=== PATIENT | male | born 1975 | race Two or more races ===

== ENCOUNTER 2022-10-31 15:49 | Observation (INO) ==
[2022-10-31 18:21] LABS: ABS Eosinophils 0.2 10^3/uL (0.0-0.5); ABS Lymphocytes 2.1 10^3/uL (1.0-4.8); ABS Monocytes 0.5 10^3/uL (0.0-1.1); ABS Neutrophils 2.4 10^3/uL (1.5-7.6); ABS Nucleated RBC 0.02 10^3/ul; Eosinophil % 3.3 %; Hemoglobin 16.9 g/dL (13.2-16.3); Lymphocyte % 40.5 %; Mean Corpuscular Hemoglobin 28.5 pg (27-33); Mean Corpuscular Hgb Conc 34.5 g/dL (31-36); Mean Corpuscular Volume 82.6 fL (80-97); Mean Platelet Volume 8.7 fL (7.5-11.2); Nucleated Red Blood Cells % 0.4 /100 WBC (0.0-0.4); Platelet Count 168 10^3/uL (150-450); Red Blood Count 5.93 10^6/uL (4.06-5.63); Red Cell Distribution Width 14.4 % (12-17); White Blood Count 5.3 10^3/uL (3.6-10.2)
[2022-10-31 18:32] LABS: Urine Appearance Cloudy; Urine Bilirubin Negative (Negative); Urine Blood Negative (Negative); Urine Color Yellow; Urine Glucose Negative (Negative); Urine Ketones Negative (Negative); Urine Nitrite Negative (Negative); Urine Protein Negative (Negative); Urine Specific Gravity 1.019 (1.002-1.030); Urine Urobilinogen Negative (Negative)
[2022-10-31 18:45] LABS: ALT 61 U/L (7-52); AST 33 U/L (13-39); Albumin 4.8 g/dL (3.2-5.2); Albumin/Globulin Ratio 2.1 (1-3); Alkaline Phosphatase 50 U/L (35-149); Anion Gap 6 mmol/L (2-16); Blood Urea Nitrogen 10 mg/dL (6-24); C Reactive Protein < 1.00 mg/L (<8.01); CO2 Carbon Dioxide 28 mmol/L (22-32); Calcium 9.1 mg/dL (8.6-10.3); Chloride 107 mmol/L (101-111); Creatinine, Serum 0.79 mg/dL (0.67-1.17); Globulin 2.3 g/dL (2-4); Glucose 87 mg/dL (70-100); Lipase 30 U/L (11.0-82.0); Potassium 3.6 mmol/L (3.5-5.0); Sodium 141 mmol/L (135-145); Total Protein 7.1 g/dL (6.4-8.9); eGFR CKD-EPI 109.6 (>60)
[2022-10-31] MEDS ORDERED: Iohexol 300 (CONTRAST) 10 ML SDV IV ONE (20:16)
[2022-11-01] MEDS ORDERED: Lactated Ringers 1000 ml BAG 1,000 ML IV ONE (00:17)
[2022-11-01] MEDS ORDERED: Ondansetron 4 mg VIAL 2 MG/ML 2 ml VIAL IV PRN (00:39)
[2022-11-01] MEDS ORDERED: HYDROmorphone 1 MG/1 ML SYRINGE IV SLOW PU PRN (00:39)
[2022-11-01] MEDS ORDERED: oxyCODONE/Acetamin 5/325 mg TAB PO PRN (00:39)
[2022-11-01] MEDS ORDERED: Piperacillin/Tazobac 3.375 BAG 3.375 GM/100 ML BAG IV ONE (00:40)
[2022-11-01] MEDS ORDERED: Lactated Ringers 1000 ml BAG 1,000 ML IV SCH (01:00)
[2022-11-01] MEDS ORDERED: Sucralfate 1 gm SUSP 1 GM/10 ML UDC PO SCH (01:00)
[2022-11-01] MEDS ORDERED: Enoxaparin 40 MG/0.4 ML SYR SUBCUT SCH (02:00)
[2022-11-01 10:05] VITALS: BP 142/83
== END 2022-11-01 10:03 | disposition home or self-care (01) ==
LOC: EDHOLD 15:49 → ED 15:49 → SSU 11-01 08:29 → EDHOLD 11-01 09:03
PROVIDERS: ADMIT Surgery; ATTEND Surgery